=== PATIENT | male | born 1975 | race Caucasian/White ===

== ENCOUNTER 2016-12-07 13:12 | Emergency (ER) | payer SELFPAY ==
[~2016-12-07] VITALS: Ht 170.2 cm; Wt 95.8 kg
[2016-12-07 13:23] VITALS: Ht 170.2 cm; Wt 95.8 kg
[2016-12-07] MEDS ORDERED: LIDOCAINE 1% (MDV) 20 ML INJ SC ONE (15:00)
--- NOTE | 2016-12-07 15:52 | ERD ---
DATE OF SERVICE: 12/07/2016 HISTORY OF PRESENT ILLNESS: The patient is a 41-year-old male complaining of a laceration to his le ft hand. Patient noticed that the hand was bleeding after hitting it on a wall. He states that he did have a laceration at that site on November 15, one month ago. [facility]. Sutures were removed 5 days ago and noticed today that the wound site had reop ened. He is left hand dominant. He has no tender ligament weakness. He has no numbness or tinglin g. No active bleeding. He has not had any acute trauma today, it appears that the previous lacerat ion site has opened. PAST MEDICAL HISTORY: Denies any other medical problems. VACCINATIONS: Up to date on vaccinations and tetanus shot. ALLERGIES: DENIES ALLERGIES TO MEDICATIONS. PAST SURGICAL HISTORY: Denies surgeries or hospitalizations. REVIEW OF SYSTEMS: A 12-point review of systems was done. Refer to HPI for positives, all other sy stems negative. PHYSICAL EXAMINATION: VITAL SIGNS: Temperature is 99.4, pulse is 100, blood pressure is 166/60, respiratory rate 16, O2 s at 96% on room air. Pain intensity is 0/10. GENERAL: The patient is well-appearing, well-nourished, no acute distress. HEENT: Atraumatic. Conjunctivae are pink. Pupils equal, round, and reactive to light. There is no s cleral icterus. Tympanic membranes clear bilaterally. Oropharynx clear. No nystagmus or photophobia . CHEST: Clear to auscultation bilaterally. There are no rales, wheezes or rhonchi. HEART: Regular rate and rhythm. No murmurs, clicks, rubs or gallops. No S3 or S4. ABDOMEN: Soft, nontender and nondistended. Good bowel sounds. No rebound or guarding. No gross isaura tonitis. No gross organomegaly or masses. No Martinez sign or McBurney point tenderness. EXTREMITIES: Equal pulses bilaterally. There is no peripheral clubbing, cyanosis or edema. No focal swelling or erythema. Full range of motion. Grossly neurovascularly intact. SKIN: There is an open laceration noted on the wound site of the left hand, no active bleeding. No tendon or ligament injuries, no retained foreign body. EMERGENCY ROOM COURSE: The site was cleaned with copious amounts of normal saline and approximately 3 mL of plain lidocaine was injected into the site and edges were well approximated. Four 4-0 nyl on simple interrupted sutures were placed. Patient tolerated procedure well. Site was re-cleaned a nd bandaged. DIAGNOSIS: Laceration. MEDICAL DECISION MAKING: I have low suspicion for tendon or ligament injury; low suspicion for natalya ined foreign body, low suspicion for active bleeding. DISCHARGE: The patient is discharged stable. Patient was given instructions to return to the ER fo r wound check and have sutures removed within 7 days. The patient is also recommended to keep the w ound site open to allow for drying of the wound. All other questions answered at time of discharge. Discharge summary given at the time of departure. Patient understood and complied with plan. Dictated By: WALTER GARCIA for [facility] Conf#: [id number] DID#: [id number]
== END 2016-12-07 15:30 | disposition home or self-care (01) ==
LOC: FTE 13:12
DX: S61.412A Laceration without foreign body of left hand, initial encounter (principal); W22.8XXA Striking against or struck by other objects, initial encounter; Y92.9 Unspecified place or not applicable